=== PATIENT | female | born 1995 | race Caucasian/White ===

== ENCOUNTER → 2018-12-19 16:02 | Outpatient (CLI) | payer MEDICAID, SELFPAY ==
[2018-12-19 15:48] VITALS: BMI 31.9
[2018-12-19 17:27] LABS: Absolute Lymphocyte Count 2.43 X10^3/ul (0.83-4.51); Absolute Neutrophil Count 4.9 X10^3/uL (2.0-7.7); Basophil# 0.02 X10^3/uL; Basophil% 0.2 % (0-1); Eosinophil# 0.11 X10^3/uL; Eosinophils% 1.4 % (0-5); Hematocrit 38.5 % (37-47); Hemoglobin 13.1 g/dl (12.0-15.0); Lymphocyte # 2.43 X10^3/ul (4.0); Lymphocyte % 29.9 % (19-41); Mean Corpuscular Hgb 29.5 pg (27.0-32.0); Mean Corpuscular Volume 86.7 fL (81-99); Mean Platelet Vol. 11.8 fl (6.2-12.0); Monocyte# 0.61 X10^3/uL; Monocyte% 7.5 % (0-10); Neutrophil # 4.93 X10^3/uL (2.7-7.7); Neutrophil % 60.8 % (47-70); POSITIVE COUNT NO; POSITIVE DIFFERENTIAL NO; POSITIVE MORPHOLOGY NO; Platelet Count 255 K/mm3 (150-450); RBC Distribution Width CV 13.5 % (11.6-14.6); Red Blood Count 4.44 M/mm3 (4.2-5.4); White Blood Count 8.1 K/mm3 (4.4-11.0)
[2018-12-19 18:27] LABS: HIV - WCH Non-Reactive (Nonreactive); Rubella IgG 9.5 IU/mL
[2018-12-19 22:51] LABS: Chlamydia Trachomatis by PCR POSITIVE (Negative); Neisserai gonorrhoeae by PCR Negative (Negative); Probe Check PASS
[2018-12-21 11:49] LABS: HEPATITIS B SURFACE AG Negative (Negative)
[2018-12-23 01:30] LABS: Rapid Plasmin Reagin (RPR) NONREACTIVE (NONREACTIVE)
[2018-12-23 17:29] LABS: HPV Reflexed? NOT INDICATED
== END ==
PROVIDERS: Referring Provider Nurse Practitioner Women's Health; Visit Provider Nurse Practitioner Women's Health
DX: Z34.82 Encounter for supervision of other normal pregnancy, second trimester (principal); Z31.430 Encounter of female for testing for genetic disease carrier status for procreative management
CPT/HCPCS: 36415; 85025; 86592; 86703; 86762; 86850; 86900; 87086; 87088; 87340; 87491; 87591; 87624; 88175; G0145

== ENCOUNTER → 2019-01-02 13:33 | Outpatient (CLI) | payer MEDICAID, SELFPAY ==
[2018-12-19 15:48] VITALS: BMI 31.9
--- NOTE | 2019-01-02 13:35 | US_ITS ---
STUDY: SECOND AND THIRD TRIMESTER OBSTETRICAL ULTRASOUND - LIMITED REASON FOR EXAM: Female, 23 years old. Routine survey. LMP: September 19, 2019. PRIOR ULTRASOUND: None. TECHNIQUE: Transabdominal and Transvaginal TECHNICAL QUALITY: Adequate. FINDINGS: There is a single intrauterine fetus. The fetus is in a breech presentation. There is demonstrated cardiac activity with a heart rate of 134 bpm. There is a normal amniotic fluid volume. The largest amniotic fluid pocket measures 7.0 cm x 1.7 cm. The amniotic fluid index (WOODY) is normal. The placenta is posterior in location and is not low lying. There are Grade 0 placental changes. The cervix measures 3.6 cm in length. BIOMETRY: BPD: 2.53 cm: 14 weeks, 3 days HC: 9.84 cm: 14 weeks, 4 days AC: 9.03 cm: 15 weeks, 2 days FL: 1.587: 14 weeks, 5 days Age by LMP: 15 weeks, 0 days. JAMIE by LMP: June 26, 2019. age by current US: 14 weeks, 5 days. JAMIE by current US: June 28, 2019. Estimated weight: 110 grams, +/- 60 grams, 31 percentile. Gender: Indeterminant US/OB Limited With Biometrics IMPRESSION: Single live uterine gestation with a mean gestational age of 14 weeks and 5 days. Electronically Signed: Jorge Gomez, at 15:55 EDT , Service support ,
== END ==
PROVIDERS: Referring Provider Nurse Practitioner Women's Health; Visit Provider Nurse Practitioner Women's Health
DX: Z36.87 Encounter for antenatal screening for uncertain dates (principal)
CPT/HCPCS: 76816

== ENCOUNTER → 2019-01-17 17:03 | Outpatient (CLI) | payer MEDICAID, SELFPAY ==
[2019-01-17 15:59] VITALS: BMI 31.9
[2019-01-17 19:24] LABS: Chlamydia Trachomatis by PCR Negative (Negative); Neisserai gonorrhoeae by PCR Negative (Negative); Probe Check PASS; Sample Adequacy Control PASS; Specimen Processing Control PASS
== END ==
PROVIDERS: Referring Provider Obstetrics & Gynecology; Visit Provider Obstetrics & Gynecology
DX: O98.819 Other maternal infectious and parasitic diseases complicating pregnancy, unspecified trimester (principal); A74.9 Chlamydial infection, unspecified
CPT/HCPCS: 87491; 87591

== ENCOUNTER → 2019-04-11 16:09 | Outpatient (CLI) | payer MEDICAID, SELFPAY ==
[2019-04-11 15:40] VITALS: BMI 35.2
[2019-04-11 17:13] LABS: Absolute Lymphocyte Count 2.37 X10^3/uL (0.83-4.51); Absolute Neutrophil Count 5.2 X10^3/uL (2.0-7.7); Basophil# 0.02 X10^3/uL; Basophil% 0.2 % (0-1); Eosinophil# 0.13 X10^3/uL; Eosinophils% 1.5 % (0-5); Hematocrit 34.7 % (37-47); Hemoglobin 11.6 g/dL (12.0-15.0); Lymphocyte # 2.37 X10^3/ul (4.0); Mean Corp Hgb Conc 33.4 g/dL (32-36); Mean Corpuscular Hgb 30.1 pg (27.0-32.0); Mean Corpuscular Volume 90.1 fL (81-99); Mean Platelet Vol. 11.5 fl (6.2-12.0); Monocyte# 0.69 X10^3/uL; Monocyte% 8.1 % (0-10); NRBC Flagged by Analyzer 0 % (0-5); Neutrophil # 5.19 X10^3/uL (2.7-7.7); Neutrophil % 61.4 % (47-70); Platelet Count 235 K/mm3 (150-450); RBC Distribution Width CV 12.4 % (11.6-14.6); RBC Distribution Width SD 40.7 fl (35.1-43.9); Red Blood Count 3.85 M/mm3 (4.2-5.4); White Blood Count 8.5 K/mm3 (4.4-11.0)
[2019-04-11 17:26] LABS: Glucose Challenge Gest 1H 50g 109 mg/dL (70-140)
== END ==
PROVIDERS: Referring Provider Obstetrics & Gynecology; Visit Provider Obstetrics & Gynecology
DX: O09.32 Supervision of pregnancy with insufficient antenatal care, second trimester (principal); Z3A.00 Weeks of gestation of pregnancy not specified
CPT/HCPCS: 82950; 85025

== ENCOUNTER → 2019-05-22 09:56 | Outpatient (CLI) | payer MEDICAID, SELFPAY ==
[2019-05-22 08:40] VITALS: BMI 35.2
[2019-05-22 10:30] LABS: Protein, Urine (Random) 13.1 mg/dL (<11.9); Protein:Creat Ratio 342 mg/g CRE (0-200)
== END ==
PROVIDERS: Referring Provider Obstetrics & Gynecology; Visit Provider Obstetrics & Gynecology
DX: O16.3 Unspecified maternal hypertension, third trimester (principal); Z3A.00 Weeks of gestation of pregnancy not specified
CPT/HCPCS: 82570; 84156

== ENCOUNTER 2019-05-24 15:05 | Outpatient (CLI) | payer MEDICAID, SELFPAY ==
[2019-05-22 08:40] VITALS: BMI 35.2
[2019-05-24 15:12] VITALS: BMI 39.9
[2019-05-24 15:49] LABS: Hematocrit 35.7 % (37-47); Hemoglobin 11.9 g/dL (12.0-15.0); Mean Corp Hgb Conc 33.3 g/dL (32-36); Mean Corpuscular Hgb 29.8 pg (27.0-32.0); Mean Corpuscular Volume 89.3 fL (81-99); Mean Platelet Vol. 12.1 fl (6.2-12.0); Platelet Count 223 K/mm3 (150-450); RBC Distribution Width CV 13.2 % (11.6-14.6); RBC Distribution Width SD 43.2 fl (35.1-43.9); White Blood Count 8.6 K/mm3 (4.4-11.0)
[2019-05-24 15:56] LABS: International Normalized Ratio 0.9; Partial Thromboplast Time 25.1 Seconds (24.1-36.2)
[2019-05-24 15:58] LABS: AST(SGOT) 12 U/L (15-37); Alanine Aminotransfer ALT/SGPT 15 U/L (13-56); Creatinine, Serum 0.65 mg/dL (0.55-1.02); EST Glomerular Filtration Rate 120 mL/min (>60); Est Glom Filt Rate - Afr Amer 146 mL/min (>60); Estimated Creatinine Clearance 117.23 ml/min; Uric Acid 5.7 mg/dL (2.6-6.0)
[2019-05-24 15:59] LABS: Protein, Urine (Random) 34.1 mg/dL (<11.9); Protein:Creat Ratio 404 mg/g CRE (0-200)
--- NOTE | 2019-05-27 03:14 | OB.TRI.PN ---
Progress Notes Date of Service: 05/24/19 Progress Note: Patient seen for elevated blood pressures. Elevated protein in the urine but normal labs. Repeat blood pressures within normal limits. heart tone 140s moderate variability reactive no decelerations category 1 tracing Assessment and plan preeclampsia plan home blood pressure monitoring increased testing and early delivery at 37 weeks. Laboratory Studies: Laboratory Tests 05/24/19 05/24/19 05/24/19 Range/Units 15:20 15:20 15:20 WBC 8.6 (4.4-11.0) K/mm3 RBC 4.00 L (4.2-5.4) M/mm3 Hgb 11.9 L (12.0-15.0) g/dL Hct 35.7 L (37-47) % MCV 89.3 (81-99) fL MCH 29.8 (27.0-32.0) pg MCHC 33.3 (32-36) g/dL RDW Std Deviation 43.2 (35.1-43.9) fl RDW Coeff of Richy 13.2 (11.6-14.6) % Plt Count 223 (150-450) K/mm3 MPV 12.1 H (6.2-12.0) fl PT 12.0 (11.7-14.9) SECONDS INR 0.9 APTT 25.1 (24.1-36.2) Seconds Creatinine 0.65 (0.55-1.02) mg/dL Estim Creat Clear Calc 117.23 ml/min Est GFR (MDRD) Af Amer 146 (>60) mL/min Est GFR (MDRD) Non-Af 120 (>60) mL/min Uric Acid 5.7 (2.6-6.0) mg/dL AST 12 L (15-37) U/L ALT 15 (13-56) U/L U Random Total Protein (<11.9) mg/dL Urine Creatinine (NO RANGE EST.) mg/dL Protein/Creatinin Ratio (0-200) mg/g CRE 05/24/19 Range/Units 15:15 WBC (4.4-11.0) K/mm3 RBC (4.2-5.4) M/mm3 Hgb (12.0-15.0) g/dL Hct (37-47) % MCV (81-99) fL MCH (27.0-32.0) pg MCHC (32-36) g/dL RDW Std Deviation (35.1-43.9) fl RDW Coeff of Richy (11.6-14.6) % Plt Count (150-450) K/mm3 MPV (6.2-12.0) fl PT (11.7-14.9) SECONDS INR APTT (24.1-36.2) Seconds Creatinine (0.55-1.02) mg/dL Estim Creat Clear Calc ml/min Est GFR (MDRD) Af Amer (>60) mL/min Est GFR (MDRD) Non-Af (>60) mL/min Uric Acid (2.6-6.0) mg/dL AST (15-37) U/L ALT (13-56) U/L U Random Total Protein 34.1 H (<11.9) mg/dL Urine Creatinine 84.50 (NO RANGE EST.) mg/dL Protein/Creatinin Ratio 404 H (0-200) mg/g CRE - Problem List (1) Preeclampsia Status: Acute Comment: home bp testing, reviewed preeclampsia precautions, recommend delivery at 37 weeks.
== END 2019-05-24 16:25 | disposition home or self-care (01) ==
LOC: WPOUT 15:11 → WP 15:11
PROVIDERS: Family Provider Family Medicine; PCP Family Medicine; Referring Provider Obstetrics & Gynecology; Visit Provider Obstetrics & Gynecology
DX: O14.93 Unspecified pre-eclampsia, third trimester (principal); Z3A.37 37 weeks gestation of pregnancy
CPT/HCPCS: 36415; 59025; 59050; 82565; 82570; 84156; 84450; 84460; 84550; 85027; 85610; 85730; 99218; G0378

== ENCOUNTER → 2019-05-26 12:20 | Outpatient (CLI) | payer MEDICAID, SELFPAY ==
[2019-05-22 08:40] VITALS: BMI 35.2
[2019-05-24 15:12] VITALS: BMI 39.9
--- NOTE | 2019-05-26 12:21 | US_ITS ---
STUDY: SECOND AND THIRD TRIMESTER OBSTETRICAL ULTRASOUND - LIMITED REASON FOR EXAM: Female, 24 years old. LMP: 09/19/2019 PRIOR ULTRASOUND: 01/02/2019 TECHNIQUE: Transabdominal TECHNICAL QUALITY: Adequate. FINDINGS: There is a single intrauterine fetus. The fetus is in a cephalic presentation. There is demonstrated cardiac activity with a heart rate of 147 bpm. There is a normal amniotic fluid volume. The largest amniotic fluid pocket measures 5.5 cm. The amniotic fluid index (WOODY) is 14.6 cm. The placenta is anterior in location and is not low lying. There are Grade 1 placental changes. The cervix measures 3.2 cm cm in length. BIOMETRY: BPD: 8.9 cm: 36 weeks, 0 days HC: 31.4 cm: 35 weeks, 2 days AC: 29.8 cm: 33 weeks, 6 days FL: 6.7 cm: 34 weeks, 5 days Age by LMP: 35 weeks, 4 days. JAMIE by LMP: 06/26/2019. age by current US: 35 weeks, 0 days. JAMIE by current US: 06/30/2019. Estimated weight: 2415 grams, +/- 353 grams, 19 percentile. Gender: US/OB Limited With Biometrics IMPRESSION: Living intrauterine of 35 weeks 0 days as described above. Electronically Signed: Kumar Flores MD at 15:58 EDT Tel , Service support ,
== END ==
PROVIDERS: Family Provider Family Medicine; PCP Family Medicine; Referring Provider Obstetrics & Gynecology; Visit Provider Obstetrics & Gynecology
DX: O12.13 Gestational proteinuria, third trimester (principal); Z3A.35 35 weeks gestation of pregnancy
CPT/HCPCS: 76816

== ENCOUNTER 2019-05-29 17:20 | Inpatient (IN) | payer MEDICAID, SELFPAY ==
[2019-04-11 15:40] VITALS: BMI 35.2
[2019-05-29 17:19] VITALS: BMI 39.7
[2019-05-29 17:44] VITALS: BP 162/85; PULSE 85; RESP 16; TEMP 36.9; O2SAT 98
[2019-05-29] MEDS: Lactated Ringers 1,000 ML 50 ML IV (17:44)
[2019-05-29] MEDS: Magnesium Sulfate 4gm/100mL 2 GM/50 ML IV.SOLN. IV (17:44)
[2019-05-29 17:47] LABS: Hematocrit 39.7 % (37-47); Hemoglobin 13.2 g/dL (12.0-15.0); Mean Corp Hgb Conc 33.2 g/dL (32-36); Mean Corpuscular Hgb 29.8 pg (27.0-32.0); Mean Corpuscular Volume 89.6 fL (81-99); Mean Platelet Vol. 12.2 fl (6.2-12.0); Platelet Count 237 K/mm3 (150-450); RBC Distribution Width CV 13.2 % (11.6-14.6); RBC Distribution Width SD 43.3 fl (35.1-43.9); Red Blood Count 4.43 M/mm3 (4.2-5.4); White Blood Count 9.8 K/mm3 (4.4-11.0)
[2019-05-29] MEDS: Magnesium Sulfate 4gm/100mL 4 GM/100 ML IV.SOLN. IV (17:55)
[2019-05-29 17:59] LABS: Protein, Urine (Random) 103.6 mg/dL (<11.9); Protein:Creat Ratio 2527 mg/g CRE (0-200)
[2019-05-29 18:02] LABS: International Normalized Ratio 0.9; Prothrombin Time (Protime)PT. 11.9 SECONDS (11.7-14.9)
[2019-05-29 18:03] LABS: Partial Thromboplast Time 23.9 Seconds (24.1-36.2)
[2019-05-29] MEDS: Magnesium Sulfate 20 GM/500 ML BAG IV (18:22)
[2019-05-29] MEDS: Labetalol 100 MG Tablet PO ×2 (18:31→21:59)
[2019-05-29] MEDS: Betamethasone/Betamethasone 30 MG/5 ML Vial 12 MG IM (18:46)
[2019-05-29 19:00] LABS: AST(SGOT) 13 U/L (15-37); Alanine Aminotransfer ALT/SGPT 14 U/L (13-56); Creatinine, Serum 0.72 mg/dL (0.55-1.02); EST Glomerular Filtration Rate 107 mL/min (>60); Est Glom Filt Rate - Afr Amer 129 mL/min (>60); Estimated Creatinine Clearance 105.83 ml/min
[2019-05-29 19:25] VITALS: BP 141/81; PULSE 80; RESP 16; O2SAT 98
[2019-05-29 20:06] VITALS: BP 141/87; PULSE 83; RESP 18; O2SAT 98
[2019-05-29] MEDS: miSOPROStol 25 MCG TABLET PO (20:48)
[2019-05-29 21:04] LABS: Group B Strep DNA By PCR Negative (Negative); Internal Control PASS; Probe Check PASS; Specimen Processing Control PASS
--- NOTE | 2019-05-29 22:19 | HP.PCM_ITS ---
- Problem List (1) Preeclampsia, severe Status: Acute (2) Chlamydia infection affecting Status: Acute Qualifiers: Comment: 12/20/18 tx. Repeat 4 wk- negative and at 36 wk (3) Status: Acute Qualifiers: Comment: Carrier-negative and NIPT- low risk. declined afp. anatomy us nl (4) Late care affecting in second trimester Status: Acute Comment: 1st visit at 13 wk (5) Supervision of normal first Status: Acute Qualifiers: Comment: PRR JAMIE 06/26/19 boy Maikol BF:[place] History Date of Admission: 05/29/19 Final JAMIE: 06/26/19 Gestational age: 36 Weeks and 0 Days History of this : This is a 24 year-old, , at 36 weeks gestational age presents with severely elevated bps. She had elevated protein in her urine last week and now it has increased from 400 to 2000mg. She denies any MORALES BV N V. she admits good fm no regular ctx. Bps were in the 160s over 100s upon admission. Medical History: Medical History (Last Reviewed 05/22/19 @ 08:39 by Kylee Meeks) Asthma J45.909 Allergies Penicillins [PCN] Allergy (Verified 05/24/19 15:15) Hives Home Medications: Home Medications cetirizine 10 mg capsule 10 mg PO DAILY 12/19/18 vitamin,calcium,ydjslkgk-hhta-xacmh acid tablet 1 tab PO DAILY 12/19/18 miscellaneous medical supply misc See Rx Instructions .ROUTE .MEDSUPPLY #1 ea 05/24/19 Smoking Status: Former smoker NST - FHR Rate Baby A Baseline: 140 Variability:: Moderate Accelerations:: 15 x 15 Decelerations:: None NST Reactive:: Yes FHR Category:: Category I Uterine Activity:: no History Past Pregnancies: Past Pregnancies Delivery Date Name GA/Weeks Outcome Route Weight Infant Gender Labor Length Anesthesia Delivery Location Provider FOB Labs: Mom[facility] Microbiology 05/29/19 Unknown Genital vaginal Group B Streptococcus Culture - Pending Mom[facility] Labs & Results 05/29/19 05/29/19 05/29/19 17:25 17:25 17:25 WBC 9.8 RBC 4.43 Hgb 13.2 Hct 39.7 MCV 89.6 MCH 29.8 MCHC 33.2 RDW Std Deviation 43.3 RDW Coeff of Richy 13.2 Plt Count 237 MPV 12.2 H PT 11.9 INR 0.9 APTT 23.9 L Creatinine Estim Creat Clear Calc Est GFR (MDRD) Af Amer Est GFR (MDRD) Non-Af Uric Acid AST ALT U Random Total Protein 103.6 H Urine Creatinine 41.00 Protein/Creatinin Ratio 2527 H Group B Strep DNA Specimen Comment Blood Type Antibody Screen 05/29/19 05/29/19 05/29/19 17:25 17:25 19:50 WBC RBC Hgb Hct MCV MCH MCHC RDW Std Deviation RDW Coeff of Richy Plt Count MPV PT INR APTT Creatinine 0.72 Estim Creat Clear Calc 105.83 Est GFR (MDRD) Af Amer 129 Est GFR (MDRD) Non-Af 107 Uric Acid 6.0 AST 13 L ALT 14 U Random Total Protein Urine Creatinine Protein/Creatinin Ratio Group B Strep DNA Negative Specimen Comment Not Reportable Blood Type O POSITIVE Antibody Screen NEGATIVE Course Did the patient receive Yes care? Labs Blood Type: O RH: POSITIVE RPR/VDRL/Syphilis Nonreactive Rubella status Equivocal HbSAg Negative Date Done: 12/19/18 Chlamydia Negative Gonorrhea Negative HIV/AIDS Non-Reactive Group B Strep: Not Done Current Obstetrical History Gestational Diabetes No Incompetent Cervix No Infertility No IUGR No Macrosomia No Hypertension/Pre-eclampsia Yes Placenta Previa/Abruption No PTL/PROM No Uterine anomaly No Oligohydramnios No Polyhydramnios No Multiple gestation No Past Medical History Asthma Yes: emergency inhaler Diabetes No Hypertension No Heart disease No Mitral valve prolapse No Neurologic/Seizure disorder/ Yes: migraines Migraines Kidney disease No Liver disease No Varicosities No Clotting disorders/Hx of DVT No Thyroid Dysfunction No Other medical diseases No Psychiatric disorders No Major trauma No Abnormal PAP smear No Sleep apnea No Mammogram in the last 2 years No Social History Marital Status: SINGLE Alleged father [place] Kurtz Hx Smoking Yes Smoking Status Former smoker Expected Infant Delivery Method: Spontaneous Vaginal Review of Systems Constitutional: Denies: Fever, Malaise Eyes: Denies: Blurred vision, Vision Change HEENT: Denies: Head Aches, Visual Changes Cardiovascular: Denies: Chest Pain, Palpitations Respiratory: Denies: Cough, Shortness of Breath, Wheezing Gastrointestinal: Denies: Abdominal Pain, Diarrhea, Nausea, Vomiting Genitourinary: Denies: Dysuria, Hematuria Musculoskeletal: Denies: Joint Pain, Muscle pain Skin: Denies: Lesions, Rash Neurological: Denies: Blurred vision, Focal weakness, Headaches Psychiatric: Denies: Anxiety, Depression Endocrine: Denies: Heat/ Cold Intolerance Hematologic/ Lymphatic: Denies: Easy Bruising, Easy Bleeding Physical Exam Vitals: Vital Signs Temp Pulse Resp BP Pulse Ox 98.4 F 83 18 141/87 H 98 05/29/19 17:44 05/29/19 20:06 05/29/19 20:06 05/29/19 20:06 05/29/19 20:06 General: Alert, Cooperative, No apparent distress HEENT: Atraumatic, Normocephalic. Negative for: Thyromegaly, Lymphadenopathy Cardiovascular: Regular rate Lungs: Normal air movement Abdomen: Soft, Non Tender, Gravid Neurological: Deep Tendon Reflexes 2+/4 and Symmetrical, Neuro grossly intact. 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 Negative for: Vulvar lesions Estimated gestational size: Appropriate for gestational size Presentation: Cephalic Cervix Dilation (cm): 0 Station: -3 Effacement (%): 0 Assessment/Plan All Active Problems (Last Reviewed 05/22/19 @ 08:39 by Kylee Meeks) Preeclampsia (Acute) Preeclampsia, severe (Acute) Chlamydia infection affecting (Acute) (Acute) Late care affecting in second trimester (Acute) Supervision of normal first (Acute) This is a 24 year-old, , at 36 weeks gestational age presents with preeclampsia with severe features. Patient presents IOL, plan management for , plan cytotec and then pit and fb Pain management: plans epidural. GBS unknown, dna sent and plan vancomycin Management of any complications:nl bloodwork, magnesium sulfate started, plan labetalol and follow htn protocolh I have reviewed the PFSH and made any clinically relevant updates.
[2019-05-30] MEDS: miSOPROStol 25 MCG TABLET 50 MCG PO ×2 (00:57→07:00)
[2019-05-30] MEDS: Magnesium Sulfate 20 GM/500 ML BAG IV ×2 (05:03→14:15)
[2019-05-30] MEDS: Acetaminophen 500 MG Tablet 1000 MG PO (08:24)
[2019-05-30] MEDS: Labetalol 100 MG Tablet PO ×2 (09:51→22:03)
[2019-05-30] MEDS: Lactated Ringers 1,000 ML 50 ML IV (12:10)
[2019-05-30] MEDS: Oxytocin 30 units/NS 500 ml 30 UNITS/500 ML IV.SOLN IV (13:54)
[2019-05-30] MEDS: Betamethasone/Betamethasone 30 MG/5 ML Vial 12 MG IM (18:50)
[2019-05-30 19:54] VITALS: BP 142/87; PULSE 88; RESP 16; TEMP 37.4; O2SAT 99
[2019-05-30 20:54] VITALS: BP 121/64; PULSE 81; RESP 14; TEMP 37.2; O2SAT 97
--- NOTE | 2019-05-30 21:47 | PCM.PN.BLA ---
Progress Note arom clear fluid after marmolejo bulb removed spontaneously. fht 150 moderate variability reactive no decelerations category I tracing [place]: regular but difficult to trace iupc placed a/p iol severe preeclampsia- epi prn continue pit per protocol and magnesium sulfate. labetalol 100 BID
[2019-05-30 21:55] VITALS: BP 136/83; PULSE 84; RESP 16; TEMP 36.8; O2SAT 99
[2019-05-30 22:56] VITALS: BP 138/74; PULSE 79; RESP 16; TEMP 37.2; O2SAT 99
[2019-05-30] MEDS: Lactated Ringers 500 ML 999 ML IV (22:59)
[2019-05-31] VITALS (29 sets, daily range): BP systolic 109–159; BP diastolic 59–93; PULSE 72–98; RESP 16–19; TEMP 36.3–37.7; O2SAT 94–99
[2019-05-31] MEDS: Vancomycin IV 1,000 MG/200 ML BAG 200 MG IV (00:16)
[2019-05-31] MEDS: Magnesium Sulfate 20 GM/500 ML BAG IV ×3 (00:18→18:03)
[2019-05-31] MEDS: fentaNYL-bupivacaine (epidural) 100 ML BAG EPIDURAL ×2 (01:33→05:46)
[2019-05-31] MEDS: Lactated Ringers 500 ML 999 ML IV (02:28)
[2019-05-31] MEDS: Terbutaline 1 MG/ML Vial 0.25 MG SC (02:47)
[2019-05-31] MEDS: Amnioinfusion- 0.9% NS 1,000 ML IV.SOLN. INTRA-UTER (02:57)
--- NOTE | 2019-05-31 05:00 | PCM.PN.BLA ---
Progress Note fht 120 moderate variability reactive no decelerations category I tracing [place]: regular q3-5 restart pitocin per protocol. monitor and if recurrent decelerations will proceed with operative delivery
[2019-05-31] MEDS: Lactated Ringers 1,000 ML 50 ML IV ×2 (05:46→07:35)
[2019-05-31] MEDS: Cefazolin 2 GM in 0.9% Normal Saline 100 ML IV (06:20)
[2019-05-31] MEDS: Oxytocin 30 units/NS 500 ml 30 UNITS/500 ML IV.SOLN 167 UNITS IV (07:39)
--- NOTE | 2019-05-31 07:56 | PLAC_PTH ---
PATIENT: DANISH CHAMBERLAIN LOC: [facility] U#:[id number] AGE/SX: 24/F ROOM: WP004 RE05/29/[address]: Dr. Randi Holman MD : 1995 BED: 1 DIS: 06/02/2019 SPEC #: [id number] RECD: 05/31/19 08:45 STATUS: RANI RELevar #: [id number] ADRI: 05/31/19 07:[address]: Randi Holman DEPT: SURGICAL PATHOLOGY RECD BY: Crystal Cristobal ENTERED: 05/31/19 11:22 SP TYPE: PLACENTA OTHR DR: Dr. Janis Fischer, Tissues: Placenta, NOS Procedures: Surgery Specimen Level V HEADER OPERATION: Labor and delivery PRE-OP DIAGNOSIS: section TISSUE SUBMITTED: Placenta MICROSCOPIC DIAGNOSIS Gill placenta (316 gm): Umbilical cord - trivascular with no inflammation. Placental membranes - focal acute deciduitis. Placental disc - remote infarcts, Parmjit-Ezequiel change, intervillous congestion and focal intravillous congestion. AM:snehal 06/02/19 MICROSCOPIC DESCRIPTION Slides are reviewed. GROSS DESCRIPTION SPECIMEN: PLACENTA / CLINICAL INFORMATION: A. Weight: 2.149 kg B. Gestational Age: 36 weeks C. Sex: Male PLACENTAL WEIGHT (POST FIXATION): 316 gm PLACENTAL DIMENSIONS: 15 x 13 x 3.5 cm PLACENTAL SHAPE: Usual ovoid PLACENTAL WEIGHT FOR GESTATIONAL AGE: Within 10-99th percentile MEMBRANES - Present. Also present in the container is a detached portion of the membrane. A. Insertion: Marginal B. Site of rupture from edge: Distance of rupture cannot be assessed. C. Color of membrane: Paul-mitchell D. Abnormalities: None UMBILICAL CORD - Present A. Color: Paul-mitchell B. Insertion: Paracentral C. Length: 26 cm D. Diameter: Up to 1 cm E. Number of vessels: Three F. Abnormalities: None PLACENTAL DISC - Present A. Color of surface: Paul-mitchell B. surface abnormalities: None C. Maternal cotyledons: Intact with minimal tears D. Attached retro placental clot: No clot E. Cut surface: Dark red and spongy F. Lesions: Sections reveal three paul, indurated lesions, the largest measuring 1.5 cm in greatest dimension. G. Separate clot: Absent SECTIONS SUBMITTED: 1. Membrane roll 2. Cord, maternal end 3. Cord, end 4. Placental disc, and maternal surfaces, two lesions 5. Placental disc, and maternal surfaces, one lesion 6. Placental disc, and maternal surfaces ADARSH:snehal 06/01/19 TC:2 CPT: 29887
--- NOTE | 2019-05-31 08:39 | PCM.OPRPT ---
Problem List (1) Preeclampsia, severe Status: Acute (2) Chlamydia infection affecting Status: Acute Qualifiers: Comment: 12/20/18 tx. Repeat 4 wk- negative and at 36 wk (3) Status: Acute Qualifiers: Comment: Carrier-negative and NIPT- low risk. declined afp. anatomy us nl (4) Late care affecting in second trimester Status: Acute Comment: 1st visit at 13 wk (5) Supervision of normal first Status: Acute Qualifiers: Comment: PRR JAMIE 06/26/19 boy Maikol BF:[place] Delivery Classification: JONH infant caregiver: Rigoberto Mckeon Type of Anesthesia:: Epidural Special Medications: none Implants Used: none Indications for : Failure of Descent, Nonreassuring Status Description of Procedure: patient was induced for preeclampsia with severe features. she was started on magnesium sulfate and labetalol, induced with cytotec and then fb and pitocin. arom clear fluid. developed recurrent late decels with pitocin even after pitocin washout and therefore decision for was made. The patient was placed in the dorsal supine position with leftward tilt. Patient was prepped and draped in the normal sterile fashion. Pfannenstiel skin incision was made with the scalpel and carried through to the underlying layer of fascia with the scalpel. Fascia was nicked in the midline and the incision extended laterally. The rectus bellies were dissected off superiorly and inferiorly with out complication both sharply and bluntly. The peritoneum was entered digitally. The incision was stretched and a low transverse uterine incision was made with the scalpel. The 's head was delivered atraumatically followed by the anterior and posterior shoulders without complication the rest of the delivered. The cord was clamped and cut and the infant was handed off to awaiting nurse. The placenta was delivered spontaneously immediately following and was noted to be intact and have a three-vessel cord. The uterus was exteriorized cleared of all clots and debris, and the incision was closed in a double layer closure using #1 Monocryl. The ovaries and fallopian tubes were noted to be within normal limits. The uterus was returned to the maternal abdomen and gutters were cleared of all clots and debris. The peritoneum was closed with 3-0 Monocryl in a running fashion. Gloves were changed prior to fascial closure. Fascia was closed with 0 PDS in a running fashion. Subcutaneous tissue was copiously irrigated and the skin was closed with 3-0 Monocryl in a subcuticular fashion. Mepilex dressing was applied without complication. Patient was taken to recovery in stable condition. Amniotic Membrane Rupture Type: Artificial Amniotic Fluid Description: Clear Placenta Disposition: [facility] Specimen(s) sent to pathology: yes Drain: Maya to straight drain Fluids Replaced: crystalloid Cord Entanglement: Around neck x 1, loose Cord Vessel Description: 3 Vessels Esitmated Blood Loss (ml): 600 Gender: Male Delayed cord clamping: Yes Antibiotic Given: Ancef 1 gram IV x1, Ancef 2 grams IV x1, Zithromax 500 mg/5 mL X1 Pt instructed on risks of surgery: Bleeding, Anesthesia Risks Complications: None
--- NOTE | 2019-05-31 08:45 | NURSING ---
late entry. this RN to document mag flowsheet information in progress note for 0551 and 0700 times. 0551 pt tolerating well. alert and awake. 50 cc oral intake. 0 urine output or emesis noted. V/S are as follows : BP 96/43 semi fowlers, right arm, HR 89, resp 16, 98%, temporal temperature 97.8. IV site L medial antecubital. magnesium sulfate running at titration dose of 2gm/hr and 50cc/hr. Lung sounds clear all lobes. normal, nonlabored breathing pattern. normal depth and pattern observed. bicep reflexes +2. patellar reflexes +2. absent clonus. will continue to monitor. 0700 pt still in csection room. this RN reset magnesium sulfate to infuse 50cc for the next hour. V/S obtained by anesthesia. see anesthesia flowsheet and documentation. 250 clear, yellow urine emptied from marmolejo catheter in OR1. CStJohn RN aware of reflexes to be obtained with next magnesium check 0800. no oral intake during this hour. no emesis. L medial antecubital IV site. no changes in magnesium titration dose. 0715 bedside report given to recovery room nurse.
[2019-05-31] MEDS: Ketorolac 30 MG/ML Syringe IV ×2 (12:26→17:49)
--- NOTE | 2019-05-31 12:45 | NURSING ---
pt pumping for in SCN; pt coping well with transfer
--- NOTE | 2019-05-31 13:30 | NURSING ---
pt to SCN in wheelchair to see and mart with
--- NOTE | 2019-05-31 14:04 | NURSING ---
1350 pt returned from [facility]; pericare done returned to bed
--- NOTE | 2019-05-31 17:15 | NURSING ---
1700 pt to [facility] to see infant; pt pumped
--- NOTE | 2019-05-31 17:25 | NURSING ---
1400 epidural cath removed easily blue tip intacted
[2019-05-31] MEDS: Enoxaparin 40 MG/0.4 ML Syringe SC (18:56)
[2019-06-01] VITALS (10 sets, daily range): BP systolic 113–138; BP diastolic 63–84; PULSE 71–97; RESP 14–18; TEMP 36.2–37.2; O2SAT 95–99
[2019-06-01] MEDS: Ketorolac 30 MG/ML Syringe IV ×5 (00:17→23:37)
[2019-06-01] MEDS: 0.9% Saline Lock 10 ML Syringe IV ×2 (05:07→06:09)
[2019-06-01 05:34] LABS: Hematocrit 32.2 % (37-47); Hemoglobin 10.5 g/dL (12.0-15.0); Mean Corp Hgb Conc 32.6 g/dL (32-36); Mean Corpuscular Hgb 30.1 pg (27.0-32.0); Mean Corpuscular Volume 92.3 fL (81-99); Mean Platelet Vol. 11.8 fl (6.2-12.0); Platelet Count 208 K/mm3 (150-450); RBC Distribution Width CV 14.3 % (11.6-14.6); RBC Distribution Width SD 47.8 fl (35.1-43.9); Red Blood Count 3.49 M/mm3 (4.2-5.4); White Blood Count 12.1 K/mm3 (4.4-11.0)
--- NOTE | 2019-06-01 07:47 | PCM.PN.OB ---
Patient Problems: Active and Suspected Problems (Last Reviewed 05/22/19 @ 08:39 by Kylee Meeks) Preeclampsia, severe (Acute) Subjective: doing well no complaints pain controlled no CP SOB N V ambulating well tolerating po lochia moderate, going well - Physical Exam General: Alert, Oriented x3 Abdomen: Soft, Non-Distended, - - FF below U. Dressing dry and intact Vital Signs Temp Pulse Resp BP Pulse Ox 97.3 F L 80 18 129/72 H 98 06/01/19 04:58 06/01/19 06:08 06/01/19 06:08 06/01/19 06:08 06/01/19 04:58 Oxygen Delivery Method Room Air Weight: 231 lb 8 oz Body Mass Index (BMI) 39.7 Intake and Output for Last 24 Hours 05/30/19 05/31/19 06/01/19 23:59 23:59 23:59 Intake Total 3320.93 / 3320.93 6335.10 / 6335.10 840.00 / 840.00 Output Total 600 / 600 3569 / 3569 1275 / 1275 Balance 2720.93 / 2720.93 2766.10 / 2766.10 -435.00 / -435.00 Laboratory Tests Past 24 Hrs 06/01/19 05:20 WBC 12.1 H RBC 3.49 L Hgb 10.5 L Hct 32.2 L MCV 92.3 MCH 30.1 MCHC 32.6 RDW Std Deviation 47.8 H RDW Coeff of Richy 14.3 Plt Count 208 MPV 11.8 Medical Necessity - Tobacco Use Smoking Status: Former smoker Assessment/Plan All Active Problems (Last Reviewed 05/22/19 @ 08:39 by Kylee Meeks) Preeclampsia (Acute) Preeclampsia, severe (Acute) Chlamydia infection affecting (Acute) (Acute) Late care affecting in second trimester (Acute) Supervision of normal first (Acute) s/p LTCS PPD # 1 1. routine post care 2. breast feeding- support given 3. rh positive 4. rubella immune 5. BPs WNL
[2019-06-01] MEDS: 0.9% Saline Lock 10 ML Syringe 5 ML IV ×3 (12:30→23:34)
[2019-06-01] MEDS: Senna/Docusate Sodium 1 Tablet PO ×2 (12:30→14:10)
--- NOTE | 2019-06-01 15:30 | CASEMGMT ---
Social Work Assessment Labor and Delivery Unit Date of Referral:?05/31/2019 Time of Referral:?1200 Date of Intervention:?06/01/2019 Time of Intervention:?1530 ? Referred by:?notified by nursing staff of OB-ERT and baby being admitted to [facility] ? History obtained from:?medical records and mother of baby (MOB) Ena Haines. ?MOB educated that this film writer is the medical social worker for hospital of delivery and for continuity of care of baby's admitted to the SCN also provided social work to the SCN Household composition:?MOB and Father of baby (FOB) live together. ?MOB reports home situation is safe and adequate. ? ? Patient's parent/guardian status:?MOB is 24 years old and FOB is 23, together for a little over a year. ?Plan is to get . ?MOB denies any form of abuse, control, neglect, intimidation or coercion in this relationship. ?Maikol is the first child for both parents. ?? ? Medical History:?MOB is G, P0 to 1 after delivering this baby. ??MOB with care starting at 13 weeks and regular thereafter. ??Baby born at 36 weeks via stat caesarian section due to non reassuring heart tones. ??Baby born at 4 pounds 12 ounces with Apgars of 8 and 9 at 1 and 5 minutes of life. ? Educational Status:??MOB graduated high school and has some college courses done. ?No issues with reading, writing, or learning comprehension. ?? ? Health Care Coverage:?[place] ?Medicaid. ? 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 ?FOB works as a commercial real estate manager. ?? Childcare/Caregiver(s):?MOB will be primary caregiver with help from FOB. ?Have a daycare lined up when MOB returns to work, and MOB's grandmother can pitch in when needed. Transportation:?No issues.?? ? Programs/Agencies Involved:?JFS for medical. ?MOB accepting of information on WIC and may apply for this while on maternity leave. ?MOB agrees to referrals to [facility], [facility]'s nurse program, and early head start through [facility]. ?? ? Behavioral Health Issues:?MOB denies any depression or anxiety history. ?MOB admits to some counseling as a teen when there were issues with parents occurring (issues with the parental relationship and MOB's coping related to this stress in the home). ???MOB denies any history of suicidal thoughts, plans, intent or attempts. ?No thoughts of harm to others. ??MOB denies any form of illicit drug use. ?History of social alcohol use and tobacco but quit upon finding out about . ?MOB denies any abuse or dependence issues with alcohol. ???MOB reports family history of depression in both MOB's mother and grandmother. ??No drugs screens noted in the records for MOB or for baby. ? ? Family Stressors:?Unplanned , but MOB reports quickly accepting of this. ??MOB admits that had considered adoption for a short time but this was quick lived. No other stressors reported at this time. ? ? Support Systems:?MOB reports to have greats support from FOB, MOB's mother and grandmother. ??MOB reports there will be plenty of help when MOB and baby return home, and FOB plans to take a few days off of work to help out. ?? ? Assessment Met with MOB at baby's bedside in the [facility]. ?MOB's mother and grandmother present for part of conversation, with MOB permission. ?Family presents as supportive and MOB appearing relaxed with visitors. ?Family left bedside without issue when medical social worker asked. ?MOB reports to have needed supplies for the baby and that family and friends have already come together to get some preemie clothing and diapers for the baby. ?MOB has already checked to assure that car seat can hold a 4 pound baby. ??MOB reports to have a safe sleep space for the baby. ??MOB able to give appropriate responses to safe sleeping an shaken baby. ??MOB attentive to conversation and engaged in conversation about depression and risk present. ?MOB repots will keep an eye out and reports to be aware of risk due to family history. ??MOB accepting of referrals for home going that may help with transition to home a new parent ([facility], nurse visit and early head start). ?MOB voicing concern and love for baby, that just wants to do whatever will be best for the baby at hospital and at home. ??MOB held good eye contact, engaged easily in conversation, pleasant, and attentive to baby during social work visit. ? Plan MOB [place] discharge home when medically stable. ? Will make community referrals closer to time of baby's discharge from the SCN so that MOB is not being called while still at the hospital. ?MOB has been given community resources list for [facility] and depression packet already. ? ? ?Response to Plan:?MOB?does express understanding of proposed plan. No other services requested or indicted from [facility] perspective but will remain available while baby is in the SCN. VIOLETTA Ayoub
[2019-06-01] MEDS: Enoxaparin 40 MG/0.4 ML Syringe SC (18:12)
[2019-06-02] VITALS: BP 145/82; PULSE 65; RESP 16; TEMP 36.6
[2019-06-02] MEDS: Ketorolac 30 MG/ML Syringe IV (05:55)
[2019-06-02] MEDS: 0.9% Saline Lock 10 ML Syringe 5 ML IV (05:55)
[2019-06-02 06:00] VITALS: BP 148/87; PULSE 69; RESP 16; TEMP 37.6
--- NOTE | 2019-06-02 08:47 | PCM.PN.OB ---
Subjective: doing well no complaints pain controlled no CP SOB N V ambulating well tolerating po lochia moderate, going well - Physical Exam General: Alert, Oriented x3 Vital Signs Temp Pulse Resp BP Pulse Ox 99.7 F H 69 16 148/87 H 98 06/02/19 06:00 06/02/19 06:00 06/02/19 06:00 06/02/19 06:00 06/01/19 04:58 Oxygen Delivery Method Room Air Weight: 231 lb 8 oz Body Mass Index (BMI) 39.7 Intake and Output for Last 24 Hours 05/31/19 06/01/19 06/02/19 23:59 23:59 23:59 Intake Total 6335.10 / 6335.10 840.00 / 840.00 Output Total 3569 / 3569 2075 / 2075 Balance 2766.10 / 2766.10 -1235.00 / -1235.00 Microbiology Past 72 Hours 05/29/19 Unknown Group B Streptococcus Culture - Final Genital vaginal Group B Beta Streptococcus is not isolated. Medical Necessity - Tobacco Use Smoking Status: Former smoker Assessment/Plan All Active Problems (Last Reviewed 05/22/19 @ 08:39 by Kylee Meeks) Preeclampsia (Acute) Preeclampsia, severe (Acute) Chlamydia infection affecting (Acute) (Acute) Late care affecting in second trimester (Acute) Supervision of normal first (Acute) s/p LTCS PPD # 1 1. routine post care 2. breast feeding- support given 3. rh positive 4. rubella immune severe preeclampsia- bps WNL doing well reviewed precautions, patient dc to home
--- NOTE | 2019-06-02 08:48 | DCINST_ITS ---
Discharge Diet: No Restrictions Discharge Activity: May Not Drive - for 2 weeks, May not drive while taking narcotic pain medications., May Shower, May Take a Tub Bath - in 7 days May resume sexual activity in: 4-6 weeks Lifting Restrictions: 20 pounds Additional Activity Instructions:: Nothing in the vagina for 4-6 weeks. You may return to work/school in 6 weeks. Call your doctor if your incision/area has: Continuous Slow Oozing, Sudden Increased Bleeding, Increased Pain/ Swelling, Increased Redness, Foul Smelling Discharge Call your doctor if you observe: Fever of 101 or Higher, Using more than one pad per hour - for 2 hours Suture Line Care: Avoid Pulling/Pushing, Avoid Pinching/Bending Cleanse incision/area with: Keep Dressing Clean & Dry Additional Instructions: If you experience any of the following, contact your healthcare provider. * Bleeding that soaks a pad every hour for 2 hours * Fever 100.4 or higher * Unrelieved incision or abdominal pain * Swelling, redness, discharge or bleeding from your incision or episiotomy site * Your incision begins to separate * Problems urinating (including inability to urinate or burning while urinating). * Visual changes * Severe headache * Flu-like symptoms * Pain or redness in one of both of your breasts * Pain, warmth, tenderness or swelling in your legs, especially the calf area * Frequent nausea and vomiting * Symptoms of depression or anxiety If you experience any of the following, call 911 or go to the nearest Emergency Room. * Chest pain * Problems breathing * Seizure activity * Partial or complete paralysis of a body part, slurred speech, weakness or drooping of the face, or a sudden inability to walk or hold your balance Allergies/Adverse Reactions: Allergies Penicillins [PCN] Allergy (Verified 05/24/19 15:15) Hives Medications to take at Discharge cetirizine 10 mg capsule 10 mg PO DAILY 12/19/18 vitamin,calcium,hnpclflh-dgsz-hafns acid tablet 1 tab PO DAILY 12/19/18 miscellaneous medical supply misc See Rx Instructions .ROUTE .MEDSUPPLY #1 ea 05/24/19 Naproxen [Naprosyn] 250 - 500 mg PO Q8H PRN PRN #30 tab 06/01/19 Oxycodone HCl/Acetaminophen [Percocet 5-325] 1 - 2 tab PO Q4H PRN PRN 7 Days #15 tab 06/01/19 The following prescriptions were given: Naproxen [Naprosyn] 250 - 500 mg PO Q8H PRN PRN #30 tab PRN Reason: MILD PAIN Transmission Status: Received by [facility] Oxycodone HCl/Acetaminophen [Percocet 5-325] 1 - 2 tab PO Q4H PRN PRN 7 Days #15 tab PRN Reason: Pain Transmission Status: Received by [facility] Follow-Up: Call to make an appointment with your doctor for an incision check in 1-2 weeks. You will also need a 6 week post- follow up appointment. Test results from this visit will be discussed in further detail at your follow- up appointment, if applicable. Please Follow Up With: Randi Holman MD - Call to make an appointment for an incision check in 1-2 [phone] When: You will need a post- check in 6 weeks. Primary Care Physician: Janis Fischer DO [Primary Care Provider] -
[2019-06-02 09:15] VITALS: BP 145/80; PULSE 81; RESP 16; TEMP 37; O2SAT 99
[2019-06-02] MEDS: Naproxen 250 MG Tablet PO (12:43)
[2019-06-02 12:58] LABS: Pathology Specimen OB SEE PATHOLOGY REPORT
--- NOTE | 2019-06-05 21:58 | PCM.DC.SUM ---
Discharge Date and Diagnosis Date of Admission: 05/29/19 Date of Discharge: 06/02/19 Hospital Course and Treatment Consultations 05/29/19 20:11 Consult: Anesthesia Routine Comment: Reason For Exam: Labor Operations: - - ltcs Summary of Care Provided: The patient is a 24 year old F presented for IOL sec preeclampsia with severe features. underwent cytotec then fb and pitocin IOL, then developed AOD and recurrent decels. patient underwent a section and had a routine recovery with a return of bowel and bladder function, was ambulating, voiding, and tolerating po, and was stable for discharge to home on POD 2 after being on treatment for her blood pressures - Physical Exam Vital Signs Temp Pulse Resp BP Pulse Ox 98.6 F 81 16 145/80 H 99 06/02/19 09:15 06/02/19 09:15 06/02/19 09:15 06/02/19 09:15 06/02/19 09:15 Oxygen Delivery Method Room Air Weight: 231 lb 8 oz Body Mass Index (BMI) 39.7 Discharge Diet: No Restrictions Discharge Activity: May Not Drive - for 2 weeks, May not drive while taking narcotic pain medications., May Shower, May Take a Tub Bath - in 7 days May resume sexual activity in: 4-6 weeks Additional Activity Instructions:: Nothing in the vagina for 4-6 weeks. You may return to work/school in 6 weeks. Call your doctor if your incision/area has: Continuous Slow Oozing, Sudden Increased Bleeding, Increased Pain/ Swelling, Increased Redness, Foul Smelling Discharge Call your doctor if you observe: Fever of 101 or Higher, Using more than one pad per hour - for 2 hours Suture Line Care: Avoid Pulling/Pushing, Avoid Pinching/Bending Cleanse incision/area with: Keep Dressing Clean & Dry Home Medications: Medications to take at Discharge cetirizine 10 mg capsule 10 mg PO DAILY 12/19/18 vitamin,calcium,catwshmw-kllm-oqvyg acid tablet 1 tab PO DAILY 12/19/18 miscellaneous medical supply misc See Rx Instructions .ROUTE .MEDSUPPLY #1 ea 05/24/19 Naproxen [Naprosyn] 250 - 500 mg PO Q8H PRN PRN #30 tab 06/01/19 Oxycodone HCl/Acetaminophen [Percocet 5-325] 1 - 2 tab PO Q4H PRN PRN 7 Days #15 tab 06/01/19 Following Prescrptions Were Given to Patient: Naproxen [Naprosyn] 250 - 500 mg PO Q8H PRN PRN #30 tab PRN Reason: MILD PAIN Transmission Status: Received by [facility] Oxycodone HCl/Acetaminophen [Percocet 5-325] 1 - 2 tab PO Q4H PRN PRN 7 Days #15 tab PRN Reason: Pain Transmission Status: Received by [facility] Primary Care Physician: Janis Fischer DO [Primary Care Provider] - Please Follow Up With: Randi Holman MD When: You will need a post- check in 6 weeks. Medical Necessity - Tobacco Use Smoking Status: Former smoker Meaningful Use Info Meaningful Use Diagnoses (Choose all that apply): None applicable
== END 2019-06-02 12:50 | disposition home or self-care (01) | DRG 540 ==
LOC: WP 20:22 → WPOUT 05-30 13:53
PROVIDERS: Admitting Provider Obstetrics & Gynecology; Family Provider Family Medicine; PCP Family Medicine; Referring Provider Obstetrics & Gynecology; Visit Provider Obstetrics & Gynecology
DX: O14.14 Severe pre-eclampsia complicating childbirth (principal); O32.4XX0 Maternal care for high head at term, not applicable or unspecified; O76 Abnormality in fetal heart rate and rhythm complicating labor and delivery; O69.81X0 Labor and delivery complicated by cord around neck, without compression, not applicable or unspecified; O99.52 Diseases of the respiratory system complicating childbirth; J45.909 Unspecified asthma, uncomplicated; O99.214 Obesity complicating childbirth; E66.01 Morbid (severe) obesity due to excess calories; Z87.891 Personal history of nicotine dependence; Z3A.36 36 weeks gestation of pregnancy; Z37.0 Single live birth
CPT/HCPCS: 59025; 59050; 76816; 82565; 82570; 84156; 84450; 84460; 84550; 85027; 85610; 85730; 86850; 86900; 86901; 87081; 87653; 88307; 99218; J7030; J7120; A4216; G0378; J0702; J2405

== ENCOUNTER → 2019-07-13 13:05 | Outpatient (CLI) | payer MEDICAID, SELFPAY ==
[2019-07-13 08:59] VITALS: BMI 39.7
[2019-07-13 14:53] LABS: Chlamydia Trachomatis by PCR Negative (Negative); Neisserai gonorrhoeae by PCR Negative (Negative); Probe Check PASS; Sample Adequacy Control PASS; Specimen Processing Control PASS
== END ==
PROVIDERS: Family Provider Family Medicine; PCP Family Medicine; Visit Provider Nurse Practitioner Women's Health
DX: A64 Unspecified sexually transmitted disease (principal)
CPT/HCPCS: 87491; 87591

== ENCOUNTER → 2021-05-01 15:07 | Outpatient (CLI) | payer OTHER, SELFPAY ==
[2021-05-01 14:04] VITALS: BMI 39.7
[2021-05-01 16:31] LABS: NATERA MAILED SPECIMEN
[2021-05-01 16:42] LABS: Protein, Urine (Random) 13.9 mg/dL (<11.9); Protein:Creat Ratio 62 mg/g CRE (0-200)
[2021-05-01 16:52] LABS: Amphetamine Urine VISTA NEGATIVE (<1000 ng/mL); Barbiturate Urine VISTA NEGATIVE (< 200 ng/mL); Benzodiazepine Urine VISTA NEGATIVE (< 200 ng/mL); Cocaine Urine VISTA NEGATIVE (< 300 ng/mL); Ecstacy Urine VISTA NEGATIVE (< 500 ng/mL); Methadone Urine VISTA NEGATIVE (< 300 ng/mL); PCP Urine VISTA NEGATIVE (< 25 ng/mL); THC Urine VISTA NEGATIVE (< 50 ng/mL); Vista UDS pH Range 5
[2021-05-05 06:06] LABS: Chlamydia By Nucleic Acid AMP Negative (Negative)
[2021-05-05 07:36] LABS: Gonococcus By Nucleic Acid AMP Negative (Negative)
== END ==
PROVIDERS: PCP Family Medicine; Referring Provider Obstetrics & Gynecology; Visit Provider Obstetrics & Gynecology
DX: O09.299 Supervision of pregnancy with other poor reproductive or obstetric history, unspecified trimester (principal); Z3A.00 Weeks of gestation of pregnancy not specified
CPT/HCPCS: 36415; 80307; 82570; 84156; 87086; 87088; 87491; 87591

== ENCOUNTER → 2021-05-26 15:29 | Outpatient (CLI) | payer OTHER, SELFPAY ==
[2021-05-26 16:18] LABS: Absolute Lymphocyte Count 2.18 X10^3/uL (0.83-4.51); Absolute Neutrophil Count 6.8 X10^3/uL (2.0-7.7); Basophil# 0.02 X10^3/uL; Basophil% 0.2 % (0-1); Eosinophil# 0.08 X10^3/uL; Eosinophils% 0.8 % (0-5); Hematocrit 35.2 % (37-47); Hemoglobin 11.7 g/dL (12.0-15.0); Lymphocyte # 2.18 X10^3/ul (0.83-4.51); Lymphocyte % 22.6 % (19-41); Mean Corp Hgb Conc 33.2 g/dL (32-36); Mean Corpuscular Hgb 28.7 pg (27.0-32.0); Mean Corpuscular Volume 86.3 fL (81-99); Mean Platelet Vol. 11.9 fl (6.2-12.0); Monocyte# 0.55 X10^3/uL; Monocyte% 5.7 % (0-10); NRBC Flagged by Analyzer 0 % (0-5); Neutrophil # 6.77 X10^3/uL (2.7-7.7); Neutrophil % 70.3 % (47-70); Platelet Count 239 K/mm3 (150-450); RBC Distribution Width CV 13.9 % (11.6-14.6); RBC Distribution Width SD 43.7 fl (35.1-43.9); Red Blood Count 4.08 M/mm3 (4.2-5.4); White Blood Count 9.6 K/mm3 (4.4-11.0)
[2021-05-26 16:24] LABS: ALB/GLOB Ratio 0.8 RATIO (0.9-2.4); AST(SGOT) 11 U/L (15-37); Alanine Aminotransfer ALT/SGPT 18 U/L (13-56); Albumin, Serum 2.9 g/dL (3.2-5.0); Alkaline Phosphatase 50 U/L (45-117); Anion Gap 7 (5-15); BUN 7 mg/dL (7-18); BUN/Creat Ratio 13.5 RATIO (10-20); Calcium,Total 8.3 mg/dL (8.5-10.1); Chloride 105 mmol/L (98-107); Creatinine, Serum 0.52 mg/dL (0.55-1.02); EST Glomerular Filtration Rate 154 mL/min (>60); Est Glom Filt Rate - Afr Amer 186 mL/min (>60); Globulin 3.7 g/dL (2.2-4.2); Glucose 138 mg/dL (74-106); Glucose Challenge Gest 1H 50g 138 mg/dL (70-140); Potassium 3.1 mmol/L (3.5-5.1); Protein, Total 6.6 g/dL (6.4-8.2); Sodium Level 135 mmol/L (136-145)
[2021-05-27 09:21] LABS: HIV - WCH Non-Reactive (Nonreactive); Hepatitis B Surface Antigen Non-Reactive (Nonreactive); Hepatitis C Antibody Non-Reactive (Nonreactive); Rubella IgG Reactive (Nonreactive); Syphilis Antibodies Non-reactive
== END ==
PROVIDERS: Referring Provider Obstetrics & Gynecology; Visit Provider Obstetrics & Gynecology
DX: O09.299 Supervision of pregnancy with other poor reproductive or obstetric history, unspecified trimester (principal); Z3A.00 Weeks of gestation of pregnancy not specified
CPT/HCPCS: 36415; 80053; 82950; 85025; 86703; 86762; 86780; 86803; 86850; 86900; 86901; 87340

== ENCOUNTER → 2021-06-16 16:10 | Outpatient (CLI) | payer OTHER, SELFPAY ==
--- NOTE | 2021-06-16 16:13 | US_ITS ---
STUDY: SECOND AND THIRD TRIMESTER OBSTETRICAL ULTRASOUND REASON FOR EXAM: Female, 26 years old anatomy LMP: 02/03/2021. TECHNIQUE: Transabdominal and Transvaginal TECHNICAL QUALITY: Adequate. PRIOR ULTRASOUND: Comparison is made with prior examination dated 05/26/2019. FINDINGS: There is a single intrauterine fetus. The fetus is in a cephalic presentation. There is demonstrated cardiac activity with a heart rate of 150 bpm. There is a normal amniotic fluid volume. The largest amniotic fluid pocket measures 3.8 cm x 3.1 cm. The amniotic fluid index (WOODY) is within normal limits. The placenta is anterior in location and is not low lying. There are Grade 0 placental changes. The cervix measures 3.6 on the in length. The adnexal regions are not visualized. BIOMETRY: BPD: 3.98 cm: 18 weeks, 0 days HC: 15.48 cm: 18 weeks, 3 days AC: 13.64 cm: 19 weeks, 0 days FL: 2.72 cm: 18 weeks, 2 days CI: 73.24% FL/BPD: 68.4% FL/HC: FL/AC: 20% HC/AC: 1.14 age by current US: 18 weeks, 3 days. JAMIE by current US: 11/14/2021. Estimated weight: 251 grams, +/- 38 grams, 27 %. Age by LMP: 19 weeks, 0 days. JAMIE by LMP: 11/10/2021. ANATOMY: Gender: Male Cranium: Normal lateral ventricles. Normal choroid plexus. Normal cerebellum. Normal cisterna magna. Normal face, nose and lips. Chest: Normal 4-chamber heart. Abdomen/Pelvis: Normal diaphragm. Normal stomach. Normal abdominal wall. Normal cord insertion. Normal 3 vessel cord. Normal kidneys. Normal bladder. Spine: Normal cervical spine. Normal thoracic spine. Normal lumbar spine. Normal sacrum. Extremities: Normal bilateral upper extremities. Normal bilateral lower extremities. US/OB Anatomy Scan IMPRESSION: Single live intrauterine gestation with a mean gestational age of 18 weeks and 3 days. Electronically Signed: Jorge Gomez MD at 15:16 EDT , Service support ,
== END ==
LOC: US 16:11
PROVIDERS: Referring Provider Obstetrics & Gynecology; Visit Provider Obstetrics & Gynecology
DX: O09.90 Supervision of high risk pregnancy, unspecified, unspecified trimester (principal); Z3A.00 Weeks of gestation of pregnancy not specified
CPT/HCPCS: 76805; 76817

== ENCOUNTER → 2021-07-26 08:53 | Outpatient (CLI) | payer OTHER, SELFPAY ==
[2021-07-26 09:41] LABS: Absolute Lymphocyte Count 1.88 X10^3/uL (0.83-4.51); Absolute Neutrophil Count 5.9 X10^3/uL (2.0-7.7); Basophil# 0.03 X10^3/uL; Basophil% 0.4 % (0-1); Eosinophil# 0.07 X10^3/uL; Eosinophils% 0.8 % (0-5); Hematocrit 35.8 % (37-47); Hemoglobin 11.9 g/dL (12.0-15.0); Lymphocyte # 1.88 X10^3/ul (0.83-4.51); Lymphocyte % 22.5 % (19-41); Mean Corp Hgb Conc 33.2 g/dL (32-36); Mean Corpuscular Hgb 29.8 pg (27.0-32.0); Mean Corpuscular Volume 89.7 fL (81-99); Mean Platelet Vol. 11.3 fl (6.2-12.0); Monocyte# 0.48 X10^3/uL; Monocyte% 5.7 % (0-10); NRBC Flagged by Analyzer 0 % (0-5); Neutrophil # 5.85 X10^3/uL (2.7-7.7); Neutrophil % 69.9 % (47-70); Platelet Count 241 K/mm3 (150-450); RBC Distribution Width CV 13.1 % (11.6-14.6); Red Blood Count 3.99 M/mm3 (4.2-5.4); White Blood Count 8.4 K/mm3 (4.4-11.0)
[2021-07-26 10:01] LABS: Glucose Challenge Gest 1H 50g 130 mg/dL (70-140)
== END ==
PROVIDERS: Visit Provider Obstetrics & Gynecology
DX: O09.90 Supervision of high risk pregnancy, unspecified, unspecified trimester (principal); Z3A.00 Weeks of gestation of pregnancy not specified
CPT/HCPCS: 36415; 82950; 85025

== ENCOUNTER 2021-09-23 16:45 | Outpatient (CLI) | payer OTHER, SELFPAY ==
[2021-09-23 16:50] VITALS: TEMP 36.4
[2021-09-23 16:52] VITALS: TEMP 36.4
[2021-09-23 16:54] VITALS: BMI 38.6
[2021-09-23 17:00] VITALS: BP 122/60; PULSE 88
[2021-09-23 17:09] VITALS: BP 119/56; PULSE 94
--- NOTE | 2021-09-23 17:11 | OB.TRI.PN_ITS ---
Progress Notes Date of Service: 09/23/21 Progress Note: Patient presents for triage evaluation secondary to decreased movement FHT: 130 Moderate variability reactive no decelerations category I tracing [place]: no regular Contractions Assessment and plan: dec movement, Reactive NST, reassuring maternal and status patient discharged to home to follow-up as scheduled. See problem list details for additional plan information. Charges/Coding Procedures Urinary/Genital [id number]: [id number] non-stress test Interp
== END 2021-09-23 17:25 | disposition home or self-care (01) ==
LOC: WPOUT 16:46 → WP 16:47
PROVIDERS: Visit Provider Obstetrics & Gynecology
DX: O36.8190 Decreased fetal movements, unspecified trimester, not applicable or unspecified (principal); Z3A.00 Weeks of gestation of pregnancy not specified
CPT/HCPCS: 59025; 59050; 99218; G0378

== ENCOUNTER 2021-10-01 16:45 | Outpatient (CLI) | payer OTHER, SELFPAY ==
--- NOTE | 2021-10-01 16:50 | US_ITS ---
STUDY: OBSTETRICAL ULTRASOUND - BIOPHYSICAL PROFILE REASON FOR EXAM: Female, 26 years old. decreased movement PRIOR ULTRASOUND: Jun 16 2021 4:20pm TECHNIQUE: Transabdominal TECHNICAL QUALITY: Adequate. FINDINGS: There is a single intrauterine fetus. The fetus is in a cephalic presentation. There is demonstrated cardiac activity with a heart rate of 180 bpm. There is a normal amniotic fluid volume. The largest amniotic fluid pocket measures cm. The amniotic fluid index (WOODY) is cm. The placenta is anterior in location and is not low lying. There are Grade 2 placental changes. Age by LMP: 34 weeks, 2 days. JAMIE by LMP: 2.14.22. . BIOPHYSICAL PROFILE: Breathing Movements (FBM): 2 Gross Body Movements (GBM): 2 Tone (FT): 2 Amniotic Fluid Volume (AFV): 2 TOTAL SCORE: 8 / 8 US/Biophysical Prof W/O Non Stres IMPRESSION: Normal biophysical profile of 8/8. There is a single live intrauterine with a heart rate of 180 bpm. Age by LMP: 34 weeks, 2 days. JAMIE by LMP: 2.14.22. Electronically Signed: Omar Espinoza MD at 17:52 EST , Service support ,
== END 2021-10-01 23:59 | disposition short-term general hospital (02) ==
LOC: US 16:48
PROVIDERS: Referring Provider Obstetrics & Gynecology; Visit Provider Obstetrics & Gynecology
DX: O09.93 Supervision of high risk pregnancy, unspecified, third trimester (principal); Z3A.34 34 weeks gestation of pregnancy
CPT/HCPCS: 76819

== ENCOUNTER 2021-10-16 10:05 | Outpatient (CLI) | payer OTHER, SELFPAY | END 2021-10-16 23:59 | disposition short-term general hospital (02) | LOC: LABSPEC 10:07 | PROVIDERS: Visit Provider Obstetrics & Gynecology | DX: Z36.85 Encounter for antenatal screening for Streptococcus B (principal) | CPT/HCPCS: 87081 ==

== ENCOUNTER 2021-11-04 09:50 | Inpatient (IN) | payer OTHER, SELFPAY ==
[2021-11-04] VITALS (15 sets, daily range): BP systolic 100–127; BP diastolic 50–71; PULSE 58–99; RESP 14–18; TEMP 35.8–37.1; O2SAT 95–100; BMI 39.2
--- NOTE | 2021-11-04 10:01 | PCM.HP.BLA ---
History and Physical Date of Admission: 11/04/21 Vital Signs 10/31/21 13:44 Height 5 ft 4 in Weight: 233 lb BMI 39.9 BP 130/82 H Intake Visit Reasons: 39 WK OB Allergies Iodine and Iodide Containing Produc Allergy (Severe, Verified 10/08/21 08:21) throat swelling Penicillins [PCN] Allergy (Verified 10/08/21 08:21) Hives Last Menstral Period: 02/13/21 PFSH PFSH Medical History Asthma Surgical History History of Family History Grandmother Cancer cervical and skin Heart disease Uncle Diabetes Mother Thyroid disorder heart condition Grandfather Cancer lung Social History adopted: No household members: spouse and children number of children: 1 current occupational status: employed current occupation: [employer] pets and animals: No Smoking Status: Former smoker alcohol intake: current details: not while * substance use type: marijuana and other details: February last use, none since found out seatbelt use: always do you feel safe at home: Yes additional social history: [place] [employer] Pregancy History 2 Elective abortions Hx Para 1 Spontaneous abortions Hx # Term Pregnancies Ectopic pregnancies Hx # Pregnancies 1 Multiple births # of living children 1 Past Pregnancies Del. Date Name GA/Weeks Outcome Route Bth Weight Gen Labor Lgth Anesthesia Del Locatn Provider FOB 05/31/19 Maikol 36 live - 4lbs 12oz Male epidural [facility] Delivery Date: 05/31/19 PreEclampsia w/severe features. Cat II tracing; AoD- LTCS Carolina Millan HPI 39 WK OB Details: DANISH CHAMBERLAIN is a 26 year old who presents for routine OB visit. she is having a preop visit for planned RLTCS and BS for sterilization OB Visit JAMIE Calculator Estimated Delivery Date Method Current WG Current Estimate 11/10/21 Ultrasound #1 38w 4d Other Estimates 11/20/21 LMP (Certain) 37w 1d Expected Delivery Route/Plan RLTCS w/ SM Specific Issue/Plans Covid status: nonimmune, counseled regarding risk of covid in vs vaccination and declined vaccination Flu vaccine: declined Tdap vaccine: given Rhogam: na LARC form signed: yes Problem list reviewed and updated with the most current plan of care details and appropriate orders placed. Relevant counseling for the gestational age provided. Continue routine care and follow up unless otherwise noted in visit notes/problem list details Initial Weight: 213 lb Date EGA Weight BP Urine Prot Glucose FHR FuHt Pres Dilation Effaced St Visit Note 05/01/21 12w 3d 213 lb (+0 oz) 122/70 175 SM- CRL NOT cons with LMP 5.3cm 05/26/21 16w 0d 214 lb (+16 oz) 120/82 Negative Negative 155 GP - no cramping or bleeding. Anatomy scan ordered. 06/23/21 20w 0d 216 lb (+3 lb) 124/80 Negative Negative 150 SM- no vb lof cramping 07/21/21 24w 0d 221 lb 1 oz (+8 lb 1 oz) 130/80 Negative Negative 140 SM- no vb crmaping some nausea. 08/15/21 27w 4d 225 lb (+12 lb) 124/72 Negative Negative 140 28 SM- no vb lof good fm no reuglar ctx schedule cs and sterilization 09/01/21 30w 0d 228 lb (+15 lb) 124/88 Negative Negative 140 30 SM- no vb lof good fm no regualr ctx 09/12/21 31w 4d 230 lb (+17 lb) 126/78 Negative Negative 140 31 Breech SM- no vb lof good fm no regular ctx 09/25/21 33w 3d 231 lb 4 oz (+18 lb 4 oz) 118/68 Trace Negative 154 33 MH-No Vb, LOF. Good FM. No CTX 10/08/21 35w 2d 230 lb (+17 lb) 116/66 Negative Negative 150 34 SM- no vb lof good fm no regular ctx 10/16/21 36w 3d 230 lb (+17 lb) 122/78 Negative Negative 140 36 Cephalic 0 SM- no vb lof good fm no regular ctx gbs done 10/24/21 37w 4d 238 lb (+25 lb) 120/82 155 36 Cephalic SM- no vb lof good fm no reuglar ctx 10/31/21 38w 4d 233 lb (+20 lb) 130/82 Negative Negative 145 38 SM- no vb lof good fm no regular ctx ACOG First Trimester First Trimester: Desire for , Alcohol, Tobacco Cessation, Illicit/Recreational Drug/Substance Use, Intimate Partner Violence, Barriers to care, Unstable Housing, Communication Barriers, Environmental/Work Hazards, Anticipated Course of Care, Toxoplasmosis Precations, Use of Any medications, Sexual activity, Exercise, Dental Care, Sauna/Hot tub use, Seat Belt use, Childbirth classes/Hospital facilities, , Travel, Indications for Ultrasound and Screening for Aneuploidy Second Trimester Second Trimester: Signs and Symptoms of Labor, Selecting a care provider, Reproductive Life Planning & Contreception, Care Planning, Tobacco Cessation, Depression/Anxiety and Intimate Partner Violence Third Trimester Third Trimester: Pain Management Plans, Labor support person(s), Immediate Larc, Movement Monitoring and Infant Feeding Yes ; Discussed Trial of Labor after Counseling and Discussed Circumcision preference Diagnostics Diagnostics Diagnostics: Glucose 1 Hr 50 gm 130 mg/dL (70-140) Hgb 11.9 g/dL (12.0-15.0) L Hct 35.8 % (37-47) L Details: HIV: Urine Culture: Sequential Screen: NIPT Screen: ROS Const Reports system reviewed and no additional complaints, except as documented Card Reports system reviewed and no additional complaints, except as documented Resp Reports system reviewed and no additional complaints, except as documented GI Reports system reviewed and no additional complaints, except as documented and Reports nausea Reports system reviewed and no additional complaints, except as documented Musc Reports system reviewed and no additional complaints, except as documented Exam Const General: cooperative, healthy appearing, comfortable and anxious HENMT Head: normal to inspection Nose: external nose normal Face and sinus: normal facial exam Neck Neck: normal visual inspection, full ROM and no lymphadenopathy Thyroid: thyroid normal Chest Chest palpation & inspection: normal inspection of the chest Resp Effort & Inspection: normal respiratory effort GI Inspection: normal to inspection Palpation: soft and other (gravid uterus) Other: infant vertex and appropriate size for gestational age Other: Cervical Exam: Extrem General: pedal edema Results POC Urinalysis 2 Dip (Clinic) Office Urine Glucose Negative Last Edit by Kylee Altamirano on 10/31/21 13:48 Office Urine Protein Negative Last Edit by Kylee Altamirano on 10/31/21 13:48 Coding Level of Care Code OB Routine Diagnoses Obesity affecting O99.210 Z3A.38 Weeks of gestation: 38 weeks Supervision of high risk , antepartum O09.90 History of pre-eclampsia in prior , currently O09.299 History of Z98.891 Assessment and Plan Assessment and Plan (1) Obesity affecting : Status: Acute Comment: nl 1 tm gct. encouraged healthy weight gain (2) : Status: Acute Qualifiers: Weeks of gestation: 38 weeks Qualified Code(s): Z3A.38 - 38 weeks gestation of Comment: GBS neg., genetic-low risk male and decline carrier screen; declines afp screen. NL ANATOMY (3) Supervision of high risk , antepartum: Status: Acute Comment: PRR JAMIE 11/10/21 boy [place] [facility]: Maikol. Spouse: [place] Chamberlain (4) History of pre-eclampsia in prior , currently : Status: Acute Comment: Labs with NOB, 81 mg asa at 14 weeks (5) History of : Status: Acute Comment: Pre E and distress, AOD plan RLTCS with 11/04/21 @ 12 Plan Details Other Orders: Orders: POC Urinalysis 2 Dip (Clinic) Today UPDATE- I have seen the patient and performed any clinically relevant updates to the history and physical exam. Randi Holman MD
[2021-11-04] MEDS: Lactated Ringers 1,000 ML 999 ML IV (10:10)
[2021-11-04 10:25] LABS: Absolute Lymphocyte Count 1.96 X10^3/uL (0.83-4.51); Absolute Neutrophil Count 5.1 X10^3/uL (2.0-7.7); Basophil# 0.02 X10^3/uL; Basophil% 0.3 % (0-1); Eosinophil# 0.06 X10^3/uL; Eosinophils% 0.8 % (0-5); Hematocrit 35.8 % (37-47); Hemoglobin 11.9 g/dL (12.0-15.0); Lymphocyte # 1.96 X10^3/ul (0.83-4.51); Lymphocyte % 24.6 % (19-41); Mean Corp Hgb Conc 33.2 g/dL (32-36); Mean Corpuscular Hgb 29.1 pg (27.0-32.0); Mean Corpuscular Volume 87.5 fL (81-99); Mean Platelet Vol. 11.2 fl (6.2-12.0); Monocyte# 0.75 X10^3/uL; Monocyte% 9.4 % (0-10); NRBC Flagged by Analyzer 0 % (0-5); Neutrophil # 5.12 X10^3/uL (2.7-7.7); Platelet Count 214 K/mm3 (150-450); RBC Distribution Width CV 15.3 % (11.6-14.6); RBC Distribution Width SD 47.7 fl (35.1-43.9); Red Blood Count 4.09 M/mm3 (4.2-5.4)
[2021-11-04] MEDS: Acetaminophen 500 MG Tablet 1000 MG PO ×3 (11:06→23:37)
[2021-11-04] MEDS: Lactated Ringers 1,000 ML 150 ML IV (11:11)
[2021-11-04] MEDS: Sodium Citrate/Citric Acid 30 ML UDC PO (12:00)
--- NOTE | 2021-11-04 12:30 | FALS_PTH ---
PATIENT: DANISH CHAMBERLAIN LOC: [facility] U#:[id number] AGE/SX: 26/F ROOM: WP006 RE11/04/[address]: Dr. Randi Holman MD : 1995 BED: 1 DIS: 11/05/2021 SPEC #: [id number] RECD: 11/05/21 08:49 STATUS: RANI RELevar #: [id number] ADRI: 11/04/21 12:[address]: Randi Holman DEPT: SURGICAL PATHOLOGY RECD BY: Marilyn Reese ENTERED: 11/05/21 08:49 SP TYPE: FALL TUBES OTHR DR: No Primary Care Phys Tissues: Fallopian tube Procedures: Surgery Specimen Level II HEADER OPERATION: Tubal ligation PRE-OP DIAGNOSIS: Sterilization TISSUE SUBMITTED: Fallopian tubes MICROSCOPIC DIAGNOSIS Bilateral fallopian tubes, salpingectomy: Bilateral fallopian tubes, no pathologic diagnosis. ADARSH:snehal 11/06/2021 MICROSCOPIC DESCRIPTION Slides are reviewed. GROSS DESCRIPTION Received in fixative is one container labeled with the patient's name and designated bilateral fallopian tubes, suture left tube. The specimen consists of bilateral fallopian tubes including fimbrial ends. The right fallopian tube measures 6.5 cm in length and 0.7 cm in diameter and left fallopian tube measures 7.5 cm in length and up to 0.7 cm in diameter. Sections reveal unremarkable cut surfaces. [employer] sections are submitted in two cassettes as follows: 1 ? right fallopian tube, 2 ? left fallopian tube. / ADARSH:snehal 11/05/2021 TC:4 CPT: 08207 x2
[2021-11-04] MEDS: Oxytocin 30 units/NS 500 ml 30 UNITS/500 ML IV.SOLN 167 UNITS IV (13:16)
[2021-11-04 13:53] LABS: Amphetamine Urine VISTA NEGATIVE (<1000 ng/mL); Barbiturate Urine VISTA NEGATIVE (< 200 ng/mL); Benzodiazepine Urine VISTA NEGATIVE (< 200 ng/mL); Cocaine Urine VISTA NEGATIVE (< 300 ng/mL); Ecstacy Urine VISTA NEGATIVE (< 500 ng/mL); Methadone Urine VISTA NEGATIVE (< 300 ng/mL); PCP Urine VISTA NEGATIVE (< 25 ng/mL); THC Urine VISTA NEGATIVE (< 50 ng/mL); Vista UDS pH Range 7
--- NOTE | 2021-11-04 13:55 | EX.PCM.OBRPT ---
Assessment & Plan (1) Obesity affecting : COMMENT: nl 1 tm gct. encouraged healthy weight gain (2) : QUALIFIERS: Weeks of gestation: 38 weeks Qualified Code(s): Z3A.38 - 38 weeks gestation of COMMENT: GBS neg., genetic-low risk male and decline carrier screen; declines afp screen. NL ANATOMY (3) Supervision of high risk , antepartum: COMMENT: PRR JAMIE 11/10/21 boy [facility] PC: Maikol. Spouse: Phoenix Kurtz (4) History of pre-eclampsia in prior , currently : COMMENT: Labs with NOB, 81 mg asa at 14 weeks (5) History of : COMMENT: Pre E and distress, AOD plan RLTCS with 11/04/21 @ 12 (6) delivery delivered: COMMENT: RLTCS BS SM 39 boy [facility] Maternal Data Information JAMIE Calculator Estimated Delivery Date Method Current WG Current Estimate 11/10/21 Ultrasound #1 39w 1d Other Estimates 11/20/21 LMP (Certain) 37w 5d Final JAMIE Source: LMP Details Operative Information Date of Procedure: 11/04/21 Pre-Operative Diagnosis: Previous desired sterilization Post-Operative Diagnosis: same Indications for : Repeat Elective (and bilateral salpingectomy) Classification: Scheduled Procedure Type: low transverse (bilateral salpingectomy) Type of Anesthesia: Spinal Special Medications: none Antibiotic Given: Ancef 2 grams IV x1 Drain: Maya to straight drain Estimated Blood Loss: 800 Fluids Replaced: crystalloid Findings Description of Procedure: Spinal anesthesia was placed without difficulty. Maya catheter was placed. The patient was placed in the dorsal supine position with leftward tilt. Patient was prepped and draped in the normal sterile fashion. Pfannenstiel skin incision was made with the scalpel and carried through to the underlying layer of fascia with the scalpel. Fascia was nicked in the midline and the incision extended laterally. The rectus bellies were dissected off superiorly and inferiorly with out complication both sharply and bluntly. The peritoneum was entered digitally. The incision was stretched and a low transverse uterine incision was made with the scalpel. The infant's head was delivered atraumatically followed by the anterior and posterior shoulders without complication the rest of the infant delivered. The cord was clamped and cut and the infant was handed off to awaiting nurse. The placenta was delivered spontaneously immediately following and was noted to be intact and have a three-vessel cord. The uterus was exteriorized cleared of all clots and debris, and the incision was closed in a single layer closure using #1 Monocryl. Patient had desired sterilization and was counseled preoperatively regarding irreversibility and permanency. Therefore bilateral fallopian tubes were elevated and transected across using a LigaSure device starting proximally to distally without complication the entire fallopian tubes were removed. The ovaries and fallopian tubes were noted to be within normal limits. The uterus was returned to the maternal abdomen and gutters were cleared of all clots and debris. The peritoneum was closed with 3-0 Monocryl in a running fashion. Gloves were changed prior to fascial closure. Fascia was closed with 0 PDS in a running fashion. Subcutaneous tissue was copiously irrigated and the skin was closed with 3-0 Monocryl in a subcuticular fashion. Mepilex dressing was applied without complication. Patient was taken to recovery in stable condition. It was discussed with the patient that based on the clinical information obtained during this encounter, combined with her history, at this time I would recommend cesareans for future deliveries if further pregnancies are desired. Amniotic Membrane Rupture Type: Artificial Amniotic Fluid Description: Clear Placenta Disposition: [facility] Cord Vessel Description: 3 Vessels Cord Entanglement: None Delayed Cord Clamping: Yes Complications Risks of Surgery Discussed w/Patient: Bleeding, Infection, Need for Future C-Sections and Injury to surrounding structure(s) including bowel and bladder Vaginal Delivery Complication Complications: None Admit VTE Documentation VTE Present on Admission: No VTE Mechan Device Prophylaxis: SCD's Multi Select Codes Urinary/Genital Urinary/Genital CPT Codes: 18644 C/S+TL [place] [address]26 Delivery [facility]
[2021-11-04] MEDS: Ketorolac 30 MG/ML Syringe IV ×2 (14:00→19:47)
[2021-11-04] MEDS: Lactated Ringers 1,000 ML 100 ML IV (16:16)
[2021-11-04] MEDS: Ondansetron 4 MG/2 ML Vial IV (16:34)
[2021-11-04] MEDS: Enoxaparin 40 MG/0.4 ML Syringe SC (23:37)
[2021-11-05] MEDS: Ketorolac 30 MG/ML Syringe IV ×2 (02:04→07:55)
[2021-11-05] MEDS: 0.9% Saline Lock 10 ML Syringe IV ×2 (02:05→07:56)
[2021-11-05 04:37] VITALS: BP 112/49; PULSE 65; RESP 14; TEMP 36.2
[2021-11-05] MEDS: Acetaminophen 500 MG Tablet 1000 MG PO ×3 (05:53→18:14)
[2021-11-05 06:06] LABS: Hematocrit 30.2 % (37-47); Hemoglobin 9.9 g/dL (12.0-15.0); Mean Corp Hgb Conc 32.8 g/dL (32-36); Mean Corpuscular Hgb 29.2 pg (27.0-32.0); Mean Corpuscular Volume 89.1 fL (81-99); Mean Platelet Vol. 11.2 fl (6.2-12.0); Platelet Count 175 K/mm3 (150-450); RBC Distribution Width CV 15.4 % (11.6-14.6); RBC Distribution Width SD 49.2 fl (35.1-43.9); Red Blood Count 3.39 M/mm3 (4.2-5.4); White Blood Count 9.5 K/mm3 (4.4-11.0)
[2021-11-05 07:59] VITALS: BP 108/56; PULSE 64; RESP 16; TEMP 36.6
--- NOTE | 2021-11-05 08:08 | PN.OBGYN_ITS ---
Subjective Subjective Patient doing well without complaints. Tolerating PO. Ambulating and voiding without difficulty. Feeding well. Denies chest pain, shortness of breath, calf pain/swelling, fevers, chills, lightheadedness. Objective Data Objective Data Vital Signs: Vital Signs Temp Pulse Resp BP Pulse Ox 97.8 F 64 16 108/56 L 98 11/05/21 07:59 11/05/21 07:59 11/05/21 07:59 11/05/21 07:59 11/04/21 23:41 Oxygen Delivery Method Room Air Weight: 235 lb 14.314 oz Body Mass Index (BMI) 39.2 Intake & Output: Intake and Output for Last 24 Hours 11/03/21 11/04/21 11/05/21 23:59 23:59 23:59 Intake Total 2399.42 / 2399.42 Output Total 1100 / 1100 500 / 500 Balance 1299.42 / 1299.42 -500 / -500 Lab / Micro Data Result Diagrams: 11/05/21 05:55 Labs: Laboratory Results - last 24 hr 11/04/21 10:10: WBC 8.0, RBC 4.09 L, Hgb 11.9 L, Hct 35.8 L, MCV 87.5, MCH 29.1, MCHC 33.2, RDW Std Deviation 47.7 H, RDW Coeff of Richy 15.3 H, Plt Count 214, MPV 11.2, Immature Gran % (Auto) 0.900, Neut % (Auto) 64.0, Lymph % (Auto) 24.6, [place] % (Auto) 9.4, Eos % (Auto) 0.8, Baso % (Auto) 0.3, Absolute Neuts (auto) 5.1, Absolute Lymphs (auto) 1.96, Nucleated RBC % 0 11/04/21 10:10: Blood Type O POSITIVE, Antibody Screen NEGATIVE 11/04/21 13:25: Urine Opiates Screen NEGATIVE, Urine Methadone Screen NEGATIVE, Ur Barbiturates Screen NEGATIVE, Ur Phencyclidine Scrn NEGATIVE, Ur Amphetamines Screen NEGATIVE, U Methamphetamin-MDMA NEGATIVE, U Benzodiazepines Scrn NEGATIVE, Urine Cocaine Screen NEGATIVE, U Cannabinoids Screen NEGATIVE, Ur Drug Screen Comment 11/05/21 05:55: WBC 9.5, RBC 3.39 L, Hgb 9.9 L, Hct 30.2 L, MCV 89.1, MCH 29.2, MCHC 32.8, RDW Std Deviation 49.2 H, RDW Coeff of Richy 15.4 H, Plt Count 175, MPV 11.2 Micro: Microbiology 11/04/21 10:10 Nasal Secretion SARS-CoV-2 Antigen (Rapid) - Final Physical Exam Const alert and oriented x3 HEENT normocephalic Eyes PERRL Neck full ROM Resp normal respiratory effort GI soft to palpation GI Narrative: FF below U. Dressing dry and intact Palpation: tender other (appropriately) Assessment & Plan (1) delivery delivered: COMMENT: RLTCS BS SM 39 boy [place] PLAN: s/p LTCS PPD # 1 1. routine post care 2. breast feeding- support given 3. rh positive 4. rubella immune 5. BPs stable 6. home today
--- NOTE | 2021-11-05 08:11 | DS.PCM_ITS ---
Providers Date of Admission: 11/04/21 Primary Care Physician: No Primary Care Phys Reason For Visit: REPEAT CSECTION Diagnosis Discharge Diagnosis (1) delivery delivered: Status: Acute Code(s): O82 - Encounter for delivery without indication Medications at Discharge Home Medications cetirizine 10 mg capsule 10 mg PO DAILY 12/19/18 prenat.vits,bello,ube-hrqh-chgvu 1 tab PO DAILY 12/19/18 hydrocodone-acetaminophen 1 tab PO Q6H PRN 5 Days #10 tab 11/04/21 naproxen 250 - 500 mg PO Q8H PRN PRN #30 tab 11/04/21 Weight / BMI Weight Weight: 235 lb 14.314 oz Body Mass Index (BMI) 39.2 ABG / Lab / Microbiology Data Result Diagrams: 11/05/21 05:55 Laboratory: Laboratory Results - last 24 hr 11/04/21 10:10: WBC 8.0, RBC 4.09 L, Hgb 11.9 L, Hct 35.8 L, MCV 87.5, MCH 29.1, MCHC 33.2, RDW Std Deviation 47.7 H, RDW Coeff of Richy 15.3 H, Plt Count 214, MPV 11.2, Immature Gran % (Auto) 0.900, Neut % (Auto) 64.0, Lymph % (Auto) 24.6, [place] % (Auto) 9.4, Eos % (Auto) 0.8, Baso % (Auto) 0.3, Absolute Neuts (auto) 5.1, Absolute Lymphs (auto) 1.96, Nucleated RBC % 0 11/04/21 10:10: Blood Type O POSITIVE, Antibody Screen NEGATIVE 11/04/21 13:25: Urine Opiates Screen NEGATIVE, Urine Methadone Screen NEGATIVE, Ur Barbiturates Screen NEGATIVE, Ur Phencyclidine Scrn NEGATIVE, Ur Amphetamines Screen NEGATIVE, U Methamphetamin-MDMA NEGATIVE, U Benzodiazepines Scrn NEGATIVE, Urine Cocaine Screen NEGATIVE, U Cannabinoids Screen NEGATIVE, Ur Drug Screen Comment 11/05/21 05:55: WBC 9.5, RBC 3.39 L, Hgb 9.9 L, Hct 30.2 L, MCV 89.1, MCH 29.2, MCHC 32.8, RDW Std Deviation 49.2 H, RDW Coeff of Richy 15.4 H, Plt Count 175, MPV 11.2 Microbiology: Microbiology 11/04/21 10:10 Nasal Secretion SARS-CoV-2 Antigen (Rapid) - Final D/C Instructions Discharge Diet: No restrictions Discharge Activity: May Not Drive ( while on narcotics) and May Shower May resume sexual activity in: 6 weeks Call your doctor if your incision/area has: Continuous Slow Oozing, Sudden Increased Bleeding, Increased Pain/ Swelling, Increased Redness, Foul Smelling Discharge and Swelling at the incision site Call your doctor if you observe: Fever of 101 or Higher, Inability to have a bowel movement, Using more than 1 pad per hour, Shortness of breath, Dizziness, Chest pain and Calf discomfort Remove Dressing in: 1 week Cleanse incision/area with: Soap & Water Please Follow Up With: Randi Holman MD When: 2 and 6 weeks Meaningful Use Info Meaningful Use Diagnoses (Choose all that apply): None applicable Discharge Plan Admission Admit Date/Time: 11/04/21 09:50 Primary Reason for Your Visit: Attending Provider: Randi Holman Primary Care Provider: Estefania Galaviz Primary Discharge Orders/Prescriptions Prescriptions: New hydrocodone-acetaminophen 5-325 mg tablet 1 tab PO Q6H PRN (Reason: pain) 5 Days Qty: 10 RF: 0 naproxen 250 MG tablet 250 - 500 mg PO Q8H PRN PRN (Reason: MILD PAIN) Qty: 30 RF: 1 Continued Zyrtec 10 mg capsule 10 mg PO DAILY RF: 0 prenat.vits,bello,xtu-bzja-savsw tablet 1 tab PO DAILY RF: 0 Discontinued aspirin 81 mg Tablet 81 mg PO DAILY RF: 0 Referrals / Follow Up: Care PhysicianEstefania Primary [Primary Care Provider] - Disposition Disposition (needs filled in before D/C Order can be placed): Home, Self Care
[2021-11-05] MEDS: Senna/Docusate Sodium 1 Tablet PO (12:41)
--- NOTE | 2021-11-05 13:20 | CASEMGMT ---
Social Work Assessment Labor and Delivery Unit Date of Referral: 11/04/2021 Time of Referral: 16:45 Referred By: Dr. Randi Holman Date of Intervention: 11/05/2021 Time of Intervention: 13:20 Reason for Referral: Mother of baby (MOB), Karl Kurtz with history of depression. History obtained from: MOB, Father of baby, Phoenix Kurtz, chart, and nursing staff. Household composition: MOB and FOB live in a private home with their first son, Maikol Kurtz (: 05/29/2019) and now this , Abbi Kurtz. Patient's parent/guardian status: MOB and FOB have been together for 4 years and are now . Maikol and Abbi are only children for both MOB and FOB. MOB denies any abuse or safety concerns with regards to FOB. MOB reports that was not planned but also ?we weren?t avoiding it.? accepted. Medical History: MOB with repeat on 11/04/2021 at 39 weeks. MOB with appropriate care visits. MOB reports plan to follow with Dr. Janessa Kurtz, generator technician for infant. Plan is to bottle feed . MOB reports to have had a ?stressful? experience with attempting to breastfeed first and is now choosing to ?take it easy on myself? and bottle feed this . Educational Status: MOB denies any issues with comprehension or understanding. Financial Status: MOB denies any financial concerns. FOB works as a slab miller operator. 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 MOB reports to have 6 weeks off work and FOCipriano has the next week. MOB plans to return to work after maternity leave. Supplies: MOB reports to have all needed supplies in the home including a crib and car seat. MOB responding appropriately to prompts for safe sleeping. Childcare/Caregiver(s): MOB plans to be primary caregiver for children until MOB returns to work. Maikol is currently with family while MOB/FOB are at hospital with this infant. MOB reports to have family for childcare when MOB returns to work. Transportation: Denies issues/concerns. Programs/Agencies Involved: Active with [employer], [employer] are of and ?we updated them last week? per MOB. Children Services/Legal Issues: MOB denies any history of children services or legal issues. Behavioral Health Issues: MOB reports depression after first . MOB reports that Maikol was ?a month early? and emergency . MOB reports ?lots of stressors in my life at that time.? MOB reports that ?life is better now.? MOB reports to have utilized counseling services to manage depression. MOB denies any current counseling services or medications. MOB denies any other history of mental health. MOB denies suicidal thoughts, plans, intents currently or history of. MOB reports to feel that MOB is able to reach out to family/doctor with any mental health concerns. Use History: MOB reports use of Marijuana in February 2021 before being aware of . MOB reports ?we were on vacation.? MOB denies any current Marijuana use or use after discovering . MOB does report daily tobacco use, ?I have cut back.? MOB reports to not smoke around children. Maternal and Infant Drug Screens: MOB with negative tox screen on 05/01/2021 and 11/04/2021. Infant with negative urine screen on 11/04/2020 and pending meconium. PHQ9: Did not trigger. Family/Social Stressors: Denies current stressors/concerns. Support Systems: MOB reports to have support from FOB and family. Depression and Anxiety/Shaken Baby/Safe Sleeping: This case management social worker provided patient with information on depression and anxiety along with shaken baby, safe sleeping, and [facility] resources. ASSESSMENT: Met with MOB, FOB and infant in room. Introduced self and case management social worker role. MOB agreeable to speak with this case management social worker. FOB agreeable to leave room, with no complaint. MOB with appropriate affect and engaged in assessment. MOB reports connection with . laying in bassinet during assessment. MOB gazing often towards . MOB denies any concerns on returning to home. Active support provided. Safe Plan of Care for infant related to substance use: MOB endorse no longer using Marijuana and does not smoke around children. PLAN: Infant to discharge to community with MOB and FOB. Social work to follow on pending meconium and make referrals as indicated. From social work stand point, cleared for discharge. Seble Rosa MSW, VIOLETTA
[2021-11-05 13:25] VITALS: BP 108/69; PULSE 61; RESP 16; TEMP 36.5; O2SAT 97
[2021-11-05] MEDS: Naproxen 500 MG Tablet PO (17:17)
[2021-11-05 18:25] VITALS: BP 139/78; PULSE 75; RESP 16; TEMP 36.6
[2021-11-07 09:41] LABS: Pathology Specimen OB SEE PATHOLOGY REPORT
== END 2021-11-05 18:33 | disposition home or self-care (01) | DRG 785 ==
PROVIDERS: Admitting Provider Obstetrics & Gynecology; Visit Provider Obstetrics & Gynecology
PROC: 0UT70ZZ Resection of Bilateral Fallopian Tubes, Open Approach (ICD-10-PCS; CPT 59514; principal; 2021-11-04 11:45)
DX: O34.211 Maternal care for low transverse scar from previous cesarean delivery (principal); E66.9 Obesity, unspecified; F17.290 Nicotine dependence, other tobacco product, uncomplicated; O99.334 Smoking (tobacco) complicating childbirth; O99.214 Obesity complicating childbirth; Z30.2 Encounter for sterilization; Z37.0 Single live birth; Z3A.38 38 weeks gestation of pregnancy; Z79.82 Long term (current) use of aspirin; Z87.59 Personal history of other complications of pregnancy, childbirth and the puerperium
CPT/HCPCS: 59050; 80307; 85025; 85027; 86850; 86900; 86901; 87426; 88302; 99218; 99251; J7120; A4216; G0378; G0463; J2405

== ENCOUNTER 2021-12-18 10:56 | Outpatient (CLI) | payer OTHER, SELFPAY ==
[2021-12-18 11:48] LABS: T4 Free Direct 0.83 ng/dL (0.76-1.46); Thyroid Stim Hormone (TSH) 0.86 uIU/mL (0.358-3.74)
[2021-12-26 00:07] LABS: HPV Genotype 16, Aptima Negative (Negative)
[2021-12-26 09:43] LABS: HPV APTIMA, High Risk Positive (Negative); HPV Genotype 18,45 Aptima Negative (Negative)
== END 2021-12-18 23:59 | disposition home or self-care (01) ==
LOC: PAVLAB 10:56
PROVIDERS: Referring Provider Obstetrics & Gynecology; Visit Provider Obstetrics & Gynecology
DX: Z12.4 Encounter for screening for malignant neoplasm of cervix (principal); E01.0 Iodine-deficiency related diffuse (endemic) goiter
CPT/HCPCS: 36415; 84439; 84443; 87624; 88175; G0145

== ENCOUNTER 2021-12-20 08:49 | Outpatient (CLI) | payer OTHER, SELFPAY ==
--- NOTE | 2021-12-20 08:51 | US_ITS ---
STUDY: THYROID ULTRASOUND REASON FOR EXAM: Female, 26 years old. Palpably enlarged thyroid TECHNIQUE: Ultrasound evaluation of the thyroid was performed with real-time and static mitchell-scale imaging. COMPARISON: None. FINDINGS: RIGHT LOBE: The right lobe of the thyroid gland measures 5.1 x 2.0 x 2.3 cm. There is a heterogeneous echotexture. There are no demonstrated solid, cystic or complex lesions. LEFT LOBE: The left lobe of the thyroid gland measures 4.8 x 2.3 x 1.7 cm. There is a heterogeneous echotexture. There are no demonstrated solid, cystic or complex lesions. ISTHMUS: The isthmus measures 4 mm. The regional lymph nodes are normal. US/Thyroid IMPRESSION: Enlarged heterogeneous thyroid without a discrete lesion or hyperemia. Electronically Signed: Theodore Whitehead MD at 11:42 EDT ,
== END 2021-12-20 23:59 | disposition home or self-care (01) ==
PROVIDERS: Referring Provider Obstetrics & Gynecology; Visit Provider Obstetrics & Gynecology
DX: E01.0 Iodine-deficiency related diffuse (endemic) goiter (principal)
CPT/HCPCS: 76536